=== PATIENT | male | born 1955 | race Caucasian/White ===

== ENCOUNTER → 2018-07-31 | Outpatient (CLI) | payer OTHER ==
--- NOTE | 2018-07-31 09:55 | PCVCIMAG ---
APPROVED REPORT Laterality: Bilateral Indications Bruit Stenosis Doppler Spectral Velocity Analysis PSV / EDVPSV / EDV ECA (R) 570 / 189 cm/sECA (L) 169 / 46 cm/s dICA (R) 120 / 37 cm/sdICA (L) 78 / 20 cm/s Mimi (R) 120 / 56 cm/smICA (L) 39 / 10 cm/s pICA (R) 132 / 43 cm/spICA (L) 604 / 208 cm/s Bulb (R) 66 / 30 cm/sBulb (L) 53 / 14 cm/s dCCA (R) 49 / 20 cm/sdCCA (L) 67 / 19 cm/s mCCA (R) 60 / 23 cm/smCCA (L) 62 / 15 cm/s Vert (R) 30 / 14 cm/sVert (L) 126 / 40 cm/s ICA/CCA 2.69 ICA/CCA 9.01 Findings The right carotid bulb has moderate heterogeneous plaque. The right proximal internal carotid artery shows 60% stenosis. The right common carotid artery shows no significant stenosis. The right external carotid artery shows >90% stenosis. The left carotid bulb has moderately severe plaque. The left proximal internal carotid artery shows >90% stenosis. The left common carotid artery shows no significant stenosis. The left external carotid artery shows >50% stenosis. Conclusion 1. Right internal carotid artery stenosis (60%) 2. Left internal carotid artery stenosis (>90%) 3. Antegrade vertebral flow Critical Notification Critical Value: Yes Physician Notified Date: 07/31/2018
--- NOTE | 2018-07-31 11:21 | PCVCIMAG ---
EXAM: AORTOILIAC DUPLEX INDICATION: Abdominal aortic aneurysm. FINDINGS: AORTA: Suprarenal aorta measures maximum diameter of 2.9 cm. There is a fusiform infrarenal aortic aneurysm. The infrarenal aorta measures maximum diameter of 3.2 x 3.6 cm. No aortic stenosis. RIGHT COMMON ILIAC ARTERY: Maximum diameter is 2.0 cm. No significant stenosis. RIGHT EXTERNAL ILIAC ARTERY: No significant stenosis. LEFT COMMON ILIAC ARTERY: Maximum diameter is 1.7 cm. No significant stenosis. LEFT EXTERNAL ILIAC ARTERY: No significant stenosis. IMPRESSION: No abdominal aortic aneurysm. No aortoiliac stenosis seen. LOC:[id number]
== END | disposition home or self-care (01) ==
LOC: EDBD → PCVCIMAG 08:18
PROVIDERS: ATTEND Internal Medicine Cardiovascular Disease
DX: I65.23 Occlusion and stenosis of bilateral carotid arteries (principal); R09.89 Other specified symptoms and signs involving the circulatory and respiratory systems; I71.4 Abdominal aortic aneurysm, without rupture
CPT/HCPCS: 93880; 93978

== ENCOUNTER → 2018-08-06 | Outpatient (CLI) | payer OTHER ==
[~2018-08-06] MED LIST: DIAZEPAM 10 MG TABLET. ONE; IOHEXOL 300 MG/ML 100ML VIAL. ONE; IOHEXOL 350 MG/ML 100 ML VIAL. ONE; IV NORMAL SALINE 1000ML BAG 1,000 ML ONE; LIDOCAINE 1%/EPI 1:100,000 20 ML VIAL. ONE; MIDAZOLAM HCL/PF 2 MG/2 ML VIAL. ONE; fentaNYL PF VIAL 100 MCG/2 ML VIAL ONE; hydrALAZINE 20 MG/ML VIAL. ONE
--- NOTE | 2018-08-06 18:11 | PCVCINTER ---
EXAM: 1. CERVICOEPHALIC ARCH AORTOGRAM. 2. BILATERAL CAROTID ANGIOGRAPHY. 3. LEFT VERTEBROBASILAR ANGIOGRAPHY. 4. BILATERAL RENAL ANGIOGRAPHY. 5. BILATERAL ILEOFEMORAL ANGIOGRAPHY. INDICATION: Carotid occlusive disease. Left subclavian steal. Hypertension. Renal atherosclerosis. PROCEDURE: Procedure and risks of the procedures listed above were discussed with the patient and consent obtained. Risks including but not limited to bleeding, infection, stroke, vascular injury, neurologic injury, embolization, allergic reactions, and contrast-induced nephropathy requiring dialysis were discussed as appropriate and consent obtained. Patient was placed on the angiography table. IV conscious sedation was used throughout procedure with appropriate monitoring from 2:00 PM through 3:00 PM. The right groin was prepped and draped in the normal sterile fashion. Ultrasound was used to interrogate the right groin and demonstrate the right common femoral artery. An ultrasound image was saved. Under ultrasound guidance a 21 gauge needle was used to gain access into the right common femoral artery and a 6F vascular sheath was placed. Catheter was placed into the ascending aorta and cervicocephalic aortic arch angiogram performed. Catheter was placed into the suprarenal abdominal aorta and abdominal aortic angiogram performed. Catheter was placed at the aortic bifurcation and bilateral iliofemoral angiography performed. Catheter was placed into the right common carotid artery and right common carotid angiogram performed. Catheter was placed into the left common carotid artery and left common carotid angiogram performed. Catheter was placed into the left subclavian artery and left vertebro-basilar angiogram performed. Catheter was placed into the right renal artery and right renal angiogram performed. Catheter was placed into the left renal artery and left renal angiogram performed. Catheters and wires were removed and hemostasis obtained using the FISH device. No immediate complications. FINDINGS: Cervicocephalic arch aortogram: The origins of the great vessels show good patency. Cranial directed flow in both vertebral arteries. 90% stenosis origin right vertebral artery. Right common carotid angiogram: This injection fills the right and left anterior and middle cerebral distributions which are otherwise unremarkable. The right cavernous and petrous carotid artery is patent. There is shelflike plaque proximal internal carotid artery which results in maximum 30% stenosis not felt to be flow-limiting. The common carotid artery is patent. 90% stenosis proximal external carotid artery. Left common carotid angiogram: 98% concentric stenosis proximal cervical internal carotid artery. There is delayed cranial directed flow throughout the internal carotid artery. The petrous and cavernous carotid arteries are patent. There is delayed filling of the middle cerebral distribution which is otherwise unremarkable. The common and external carotid arteries are patent. Left vertebrobasilar angiogram: The left vertebral artery is patent. Basilar artery is patent as are both posterior cerebral arteries. Abdominal aortogram: There is one right and one left renal artery. Small infrarenal fusiform abdominal aortic aneurysm. Right renal angiogram: Minimal plaque proximal vessel does not cause significant stenosis. Left renal angiogram: Previous stent proximal vessel is widely patent. Bilateral iliofemoral angiogram: The right and left common iliac arteries show good patency. Both internal iliac arteries show satisfactory patency. The right and left external iliac arteries are patent. The right and left common femoral and profunda femoral arteries are patent as are the visualized portions of the upper superficial femoral arteries. IMPRESSION: 90% critical stenosis proximal left internal carotid artery. 30% stenosis proximal right cervical internal carotid artery is not hemodynamically significant. Patient was referred to vascular surgery for left carotid endarterectomy in the near future. LOC:[id number]
== END | disposition home or self-care (01) ==
LOC: PCVCINTER 11:55
PROVIDERS: ATTEND Internal Medicine Cardiovascular Disease
DX: I65.23 Occlusion and stenosis of bilateral carotid arteries (principal); I70.1 Atherosclerosis of renal artery; I10 Essential (primary) hypertension; I25.10 Atherosclerotic heart disease of native coronary artery without angina pectoris; K21.9 Gastro-esophageal reflux disease without esophagitis; I25.2 Old myocardial infarction; I71.4 Abdominal aortic aneurysm, without rupture; D64.9 Anemia, unspecified; Z95.5 Presence of coronary angioplasty implant and graft; Z82.0 Family history of epilepsy and other diseases of the nervous system; F17.210 Nicotine dependence, cigarettes, uncomplicated; Z72.89 Other problems related to lifestyle; Z79.899 Other long term (current) drug therapy; Z79.82 Long term (current) use of aspirin
CPT/HCPCS: 36223; 36225; 36252; 76937; 99152; 99153; C1751; C1760; C1769; C1894; J0360; J1644; J2250; J3010; J3490; J7030; Q9967; 75630

== ENCOUNTER → 2019-07-05 | Outpatient (CLI) | payer OTHER ==
--- NOTE | 2019-07-05 11:35 | PCVCIMAG ---
EXAM: BILATERAL CAROTID DUPLEX INDICATION: Carotid Occlusive Disease. Recent left carotid endarterectomy. FINDINGS: Doppler Measurements (centimeters per second): RIGHT: Peak CCA-41, Peak ECA-594, Diastolic ICA-40, Peak ICA-122, ICA/CCA Ratio-3.0. LEFT: Peak CCA-64, Peak ECA-166, Diastolic ICA-36, Peak ICA-106, ICA/CCA Ratio-1.7. RIGHT CAROTID: The carotid bulb has moderate plaque. The proximal internal carotid artery shows 40-50% stenosis. The common carotid artery shows no significant stenosis. The external carotid artery shows 90% stenosis. LEFT CAROTID: The carotid bulb has no significant plaque. The proximal internal carotid artery shows no significant stenosis. The common carotid artery shows no significant stenosis. The external carotid artery shows 60% stenosis. Antegrade flow in both vertebral arteries. IMPRESSION: 40-50% stenosis of the right internal carotid artery with moderate plaque. No significant stenosis of the left internal carotid artery with no significant plaque. LOC:[id number]
--- NOTE | 2019-07-05 11:42 | PCVCIMAG ---
EXAM: BILATERAL RENAL ULTRASOUND AND BILATERAL RENAL DUPLEX INDICATION: Hypertension FINDINGS: Right kidney: Length measures 10.8 cm. No hydronephrosis or extensive renal scarring. Right renal duplex: Adequate technical quality. No sonographic evidence of renal artery stenosis. The aortic to renal artery ratio is 2.5. The renal vein is patent. Left kidney: Length measures 11.6 cm. No hydronephrosis or extensive renal scarring. Left renal duplex: Adequate technical quality. No sonographic evidence of renal artery stenosis. The aortic to renal artery ratio is 2.9. The renal vein is patent. Bladder: No obvious abnormalities. IMPRESSION: No significant renal artery stenosis. No hydronephrosis bilaterally. Prominence at the bladder base. Further evaluation by urology is suggested. LOC:[id number]
== END | disposition home or self-care (01) ==
LOC: PCVCIMAG 09:09
PROVIDERS: ATTEND Internal Medicine Cardiovascular Disease
DX: I65.21 Occlusion and stenosis of right carotid artery (principal)
CPT/HCPCS: 76770; 93880; 93975

== ENCOUNTER → 2019-09-16 | Outpatient (CLI) | payer OTHER ==
--- NOTE | 2019-09-16 11:21 | PCVCIMAG ---
EXAM: AORTOILIAC DUPLEX INDICATION: Abdominal aortic aneurysm. FINDINGS: AORTA: Suprarenal aorta measures maximum diameter of 2.5 cm. There is a fusiform infrarenal aortic aneurysm. The infrarenal aorta measures maximum diameter of 2.7 x 3.6 cm. No aortic stenosis. RIGHT COMMON ILIAC ARTERY: Maximum diameter is 1.3 cm. No significant stenosis. RIGHT EXTERNAL ILIAC ARTERY: No significant stenosis. LEFT COMMON ILIAC ARTERY: Maximum diameter is 1.3 cm. No significant stenosis. LEFT EXTERNAL ILIAC ARTERY: No significant stenosis. IMPRESSION: 3.6 cm infrarenal abdominal aortic aneurysm is unchanged compared to July 2018 study. LOC:[id number]
--- NOTE | 2019-09-17 13:24 | PCVCIMAG ---
APPROVED REPORT Study performed: 09/16/2019 12:02:33 Exam: Stress Echocardiogram Indication: CAD, Stent Patient Location: Echo lab Stress Nurse: Mag Luciano RN Status: routine Ht: 5 ft 6 in HR: 76 bpm BP: 200/100 mmHg Rhythm: NSR Medical History Medical History: CAD, Stent, AAA Procedure The patient underwent an Exercise Stress Test using the Bishop Protocol. Blood pressure, heart rate, and EKG were monitored. An Echocardiogram was performed by wire technician in four stages in quad fashion. At peak stress, four selected images were obtained and placed side by side with resting images for comparison. Stress Test Details Stress Test: Exercise stress testing was performed using a Bishop protocol. HR Resting HR: 76 bpmMax Heart Rate (APMHR): 156 bpm Max HR Achieved: 137 bpmTarget HR (85% APMHR): 132 bpm % of APMHR: 87 Recovery HR: 82 bpm HR response to stress: Normal HR response to stress BP Resting BP: 200/100 mmHg Max BP: 260/120 mmHg Recovery BP: 222/132 mmHg BP response to stress: Abnormal hypertensive response to stress. ECG Resting ECG: Sinus Rhythm Stress ECG: Sinus Rhythm, Non-specific T wave changes Recovery ECG: Sinus Rhythm Clinical Reason for Termination: Maximal effort Exercise duration: 6 min sec Highest Stage Achieved: Stage 2: 2.5 mph at 12% grade. Exercise capacity: 7.00 METs Overall Exercise Capacity for Age: Poor Pre-Stress Echo The resting Echocardiogram showed normal left ventricular contractility with an estimated Ejection Fraction of about >55%. Mild to moderate concentric hypertrophy. Mild basal inferior wall hypokinesis. Post-Stress Echo The stress Echocardiogram showed normal left ventricular contractility with an estimated Ejection Fraction of about 55-60%. Mild to moderate concentric hypertrophy. Mild basal inferior wall hypokinesis. No new regional wall motion abnormalities. Conclusion Clinical Response: Non-ischemic Exercise Capacity: Below Average Stress ECG Response: Equivocal Stress Echo Images: Non-ischemic No significant doppler abnormalities. Other Information Study Quality: Good <Conclusion> No significant doppler abnormalities.
== END | disposition home or self-care (01) ==
LOC: PCVCIMAG 10:42
PROVIDERS: ATTEND Internal Medicine Cardiovascular Disease
DX: I71.4 Abdominal aortic aneurysm, without rupture (principal); I25.10 Atherosclerotic heart disease of native coronary artery without angina pectoris; E78.5 Hyperlipidemia, unspecified; K21.9 Gastro-esophageal reflux disease without esophagitis; F17.210 Nicotine dependence, cigarettes, uncomplicated; Z95.5 Presence of coronary angioplasty implant and graft; Z86.2 Personal history of diseases of the blood and blood-forming organs and certain disorders involving the immune mechanism; Z72.89 Other problems related to lifestyle
CPT/HCPCS: 93325; 93351; 93978